=== PATIENT | male | born 1955 | race American Indian/Alaskan Native ===

== ENCOUNTER 2020-05-09 14:40 | Emergency (ER) | payer OTHER ==
[2020-05-09 14:48] VITALS: BP 167/97
--- NOTE | 2020-05-09 15:22 | XRay Report ---
LEFT KNEE 3 VIEWS INDICATION: left knee pain. COMPARISON: No relevant prior imaging study available. FINDINGS: There is a sclerotic lesion in the distal left femoral metadiaphysis which measures 3.4 cm and is sug gestive of a bone infarct. There is mild remodeling in the distal femur metadiaphysis which could be due to remote, healed fracture. No acute, displaced fracture or dislocation is seen. There is a trace joint effusion. IMPRESSION: 1. No acute findings. Signer Name: Garland Sterling MD Signed: 05/09/2020 3:18 PM Workstation Name: [id number]
--- NOTE | 2020-05-09 15:30 | Emergency Department Report ---
ED Lower Extremity HPI - General Chief Complaint: Extremity Injury, Lower Stated Complaint: LEFT KNEE PAIN Time Seen by Provider: 05/09/20 14:44 Source: patient Mode of arrival: Ambulatory Limitations: No Limitations - History of Present Illness Initial Comments: This is a 65-year-old male nontoxic, well nourished in appearance, no acute signs of distress presents to the ED with c/o of left knee pain 2 days. Patient stated that he was jogging and developed left knee pain. Patient denies any direct injuries or trauma. Patient denies any numbness, tingling, fever, chills, nausea, vomiting, chest pain, shortness of breath, headache, stiff neck. Patient denies any joint swelling or joint redness. Patient stated has some decreased range of motion and abnormal gait due to pain. Patient denies any allergies. MD Complaint: knee injury -: days(s) Injury: Knee: Left Severity: mild Severity scale (0 -10): 8 Improves With: immobilization Worsens With: weight bearing, movement, palpation Associated Symptoms: able to partially bear weight. denies: snap/pop sensation, swelling, numbness, tingling, unable to bear weight - Related Data Previous Rx's Medication Instructions Recorded Last Taken Type Naproxen 500 mg PO Q12H PRN #20 tablet 05/09/20 Unknown Rx Allergies Allergy/AdvReac Type Severity Reaction Status Date / Time No Known Allergies Allergy Unverified 05/09/20 14:42 ED Review of Systems ROS: Stated complaint: LEFT KNEE PAIN Other details as noted in HPI Comment: All other systems reviewed and negative Constitutional: denies: chills, fever Eyes: denies: eye pain, eye discharge, vision change ENT: denies: ear pain, throat pain Respiratory: denies: cough, shortness of breath, wheezing Cardiovascular: denies: chest pain, palpitations Endocrine: no symptoms reported Gastrointestinal: denies: abdominal pain, nausea, diarrhea Genitourinary: denies: urgency, dysuria Musculoskeletal: denies: back pain, joint swelling, arthralgia Skin: denies: rash, lesions Neurological: denies: headache, weakness, paresthesias Psychiatric: denies: anxiety, depression Hematological/Lymphatic: denies: easy bleeding, easy bruising ED Past Medical Hx - Past Medical History Previous Medical History?: Yes Additional medical history: CAD - Surgical History Past Surgical History?: Yes Hx Coronary Stent: Yes - Social History Smoking Status: Never Smoker Substance Use Type: None - Medications Home Medications: Home Medications Medication Instructions Recorded Confirmed Last Taken Type Naproxen 500 mg PO Q12H PRN #20 tablet 05/09/20 Unknown Rx ED Physical Exam - General Limitations: No Limitations General appearance: alert, in no apparent distress - Head Head exam: Present: atraumatic, normocephalic - Eye Eye exam: Present: normal appearance - Neck Neck exam: Present: normal inspection, full ROM - Respiratory Respiratory exam: Absent: respiratory distress - Cardiovascular Cardiovascular Exam: Present: regular rate - Extremities Exam Extremities exam: Present: normal inspection, full ROM, tenderness, normal capillary refill. Absent: joint swelling, calf tenderness - Expanded Lower Extremity Exam Left Hip exam: Present: normal inspection, full ROM. Absent: tenderness, swelling Upper Leg exam: Present: normal inspection, full ROM. Absent: tenderness, swelling Knee exam: Present: normal inspection, full ROM, tenderness, full knee extension. Absent: swelling, abrasion, laceration, ecchymosis, deformity, crepidus, dislocation, erythema, effusion, pain w/ pronation/supination, posterior draw sign, pain/laxity with valgus, pain/laxity with varus Lower Leg exam: Present: full ROM. Absent: tenderness, swelling, abrasion, laceration, ecchymosis, deformity, crepidus, dislocation, erythema, palpable cord, Chrystal's sign Ankle exam: Present: normal inspection, full ROM. Absent: tenderness, swelling Foot/Toe exam: Present: normal inspection, full ROM. Absent: tenderness, swelling Neuro vascular tendon exam: Present: no vascular compromise Gait: Positive: observed and limited by pain - Back Exam Back exam: Present: normal inspection, full ROM - Neurological Exam Neurological exam: Present: alert, oriented X3 - Psychiatric Psychiatric exam: Present: normal affect, normal mood - Skin Skin exam: Present: warm, dry, intact, normal color. Absent: rash ED Course Vital Signs 05/09/20 14:44 Temperature 97.9 F Pulse Rate 79 Respiratory 20 Rate Blood Pressure 167/97 O2 Sat by Pulse 100 Oximetry - Reevaluation(s) Reevaluation #1: 05/09/20 15:29 Patient is speaking in full sentences with no signs of distress noted. ED Lower Extremity MDM - Radiology Data Referring Physician: MARIA LUISA DUBOSE Patient Name: JASON HOU JR Date of : 1955 Sex: Male Report Date: 2020-05-09 Report Status: Finalized [facility] [address] [place] [address] XR ay Report Signed Patient: JASON HOU JR MR#: [id number] : 1955 Acct:[id number] Age/Sex: 65 / M ADM Date: 05/09/20 Loc: ED Attending Dr: Ordering Physician: MARIA LUISA DUBOSE NP Date of Service: 05/09/20 Procedure(s): XR knee 3V LT Accession Number(s): [id number] cc: MARIA LUISA DUBOSE NP Fluoro Time In Minutes: LEFT KNEE 3 VIEWS INDICATION: left knee pain. COMPARISON: No relevant prior imaging study available. FINDINGS: There is a sclerotic lesion in the distal left femoral metadiaphysis which measures 3.4 cm and is suggestive of a bone infarct. There is mild remodeling in the distal femur metadiaphysis which could be due to remote, healed fracture. No acute, displaced fracture or dislocation is seen. There is a trace joint effusion. IMPRESSION: 1. No acute findings. Signer Name: Garland Sterling MD Signed: 05/09/2020 3:18 PM Workstation Name: [id number] Transcribed By: Dictated By: Garland Sterling MD Electronically Authenticated By: Garland Sterling MD Signed Date/Time: 05/09/20 1518 DD/ 16 TD/TT: - Medical Decision Making This is a 65-year-old male that presents with left knee strain. Patient is stable and was examined by me. I referred patient to an orthopedic doctor for further evaluation for possible MRI. X-ray has been obtained and dictated by the radiologist. Patient is notified of the x-ray report with noted by the patient. Patient does not have joint swelling. No ecchymosis. no joint redness or swelling. Not warm to touch. No signs of cellulites present. Patient does have a knee immobilizer on currently.. Patient was instructed to RICE therapy. Patient is discharged with naproxen. At time of discharge, the patient does not seem toxic or ill in appearance. No acute signs of distress noted. Patient agrees to discharge treatment plan of care. No further questions noted by the patient. Critical care attestation.: If time is entered above; I have spent that time in minutes in the direct care of this critically ill patient, excluding procedure time. ED Disposition Clinical Impression: Strain of left knee Qualifiers: Encounter type: initial encounter Qualified Code(s): S86.912A - Strain of unspecified muscle(s) and tendon(s) at lower leg level, left leg, initial encounter Disposition: TO HOME OR SELFCARE Is pt being admited?: No Does the pt Need Aspirin: No Condition: Stable Instructions: RICE Therapy for Routine Care of Injuries, [id number] Additional Instructions: Follow-up with a orthopedic doctor in 3-5 days or if symptoms worsen and continue return to emergency room as soon as possible. No physical activity or weightbearing to that extremity until cleared by orthopedic doctor Prescriptions: Naproxen 500 mg PO Q12H PRN #20 tablet PRN Reason: pain Referrals: PRIMARY CAREMD [Referring] - 3-5 Days MATTY JOSEPH MD [Staff Physician] - 3-5 Days Forms: Work/School Release Form(ED) Time of Disposition: 15:31
== END 2020-05-09 16:20 | disposition home or self-care (01) ==
LOC: ED 14:40
DX: S86.912A Strain of unspecified muscle(s) and tendon(s) at lower leg level, left leg, initial encounter (principal); Z98.890 Other specified postprocedural states; Z79.899 Other long term (current) drug therapy; Z88.8 Allergy status to other drugs, medicaments and biological substances; X58.XXXA Exposure to other specified factors, initial encounter; Y93.89 Activity, other specified; Y92.89 Other specified places as the place of occurrence of the external cause; Y99.8 Other external cause status